=== PATIENT | male | born 2000 | race African-American/Black ===

== ENCOUNTER 2023-04-05 20:20 | Observation (INO) | payer OTHER ==
[2023-04-05 20:45] LABS: BASOPHILS % (AUTO) 0.4 %; EOSINOPHILS # (AUTO) 0.1 10^3/uL (0.0-0.7); EOSINOPHILS % (AUTO) 1.1 %; HGB - HEMOGLOBIN 15.9 g/dL (14.0-18.0); LYMPHOCYTES # (AUTO) 2.2 10^3/uL (1.5-3.5); LYMPHOCYTES % (AUTO) 21.7 %; MEAN CORPUSCULAR HEMOGLOBIN 27.8 pg (27.0-31.0); MEAN CORPUSCULAR HGB CONC 31.2 g/dL (32.0-36.0); MEAN CORPUSCULAR VOLUME 89.2 fL (80.0-94.0); MEAN PLATELET VOLUME 9.6 fL (7.4-11.4); MONOCYTES # (AUTO) 0.9 10^3/uL (0.0-1.0); MONOCYTES % (AUTO) 9.2 %; NEUTROPHILS # (AUTO) 6.8 10^3/uL (1.5-6.6); NEUTROPHILS % (AUTO) 67.4 %; PLT - PLATELET COUNT 236 10^3/uL (130-450); RED BLOOD COUNT 5.72 10^6/uL (4.70-6.10); RED CELL DISTRIBUTION WIDTH 13.3 % (12.0-15.0); WHITE BLOOD COUNT 10.1 x10^3/uL (4.8-10.8)
[2023-04-05 20:57] LABS: ALBUMIN 4.5 g/dL (3.2-5.5); ALBUMIN/GLOBULIN RATIO 1.3 (1.0-2.2); BILIRUBIN,TOTAL 1.6 mg/dL (0.2-1.0); CALCIUM 8.9 mg/dL (8.5-10.3); CREATININE 2.2 mg/dL (0.6-1.2)
[2023-04-05] MEDS ORDERED: SODIUM CHLORIDE 0.9% 1,000 ML IV STA ×2 (21:02→23:12)
--- NOTE | 2023-04-05 21:07 | ED Physician Documentation ---
PD HPI ABD PAIN - Stated complaint Stated Complaint: ABD PX - Chief complaint Chief Complaint: Abd Pain - History obtained from History obtained from: Patient - Additional information Additional information: This is a 22-year-old male with no significant past medical history and who is in the [place] presents today with right flank pain as well as abdominal pain and cramping. He first noticed the abdominal pain and cramping yesterday morning, he had episode of diarrhea and some nausea but no vomiting. He then noticed some right flank pain today. He does not have dysuria but feels some sort of di scomfort in his abdomen when he is voiding. He has not noticed decreased urination or hematuria however. He does note that his 4 days ago he felt like he is sustained a left-sided back injury while playing football and he went into the clinic and received a Toradol shot and then took ibuprofen several times with improvement in the left flank pain but then subsequently had his abdominal discomfort and symptoms. No history of kidney disease to his knowledge, no family history of kidney disease. No history of kidney stones. Review of Systems Constitutional: reports: Reviewed and negative Eyes: reports: Reviewed and negative Ears: reports: Reviewed and negative Nose: reports: Reviewed and negative Throat: reports: Reviewed and negative Cardiac: reports: Reviewed and negative Respiratory: reports: Reviewed and negative GI: reports: Abdominal Pain, Nausea, Diarrhea. denies: Abdominal Swelling, Vomiting, Constipation, Hematemesis, Bloody / black stool : reports: Dysuria. denies: Frequency, Hesitancy, Unable to Void, Incontinent, Hematuria, Discharge Skin: reports: Reviewed and negative Musculoskeletal: reports: Back pain. denies: Neck pain, Extremity pain, Joint pain, Extremity swelling Neurologic: reports: Reviewed and negative Psychiatric: reports: Reviewed and negative Endocrine: reports: Reviewed and negative PD PAST MEDICAL HISTORY - Present Medications Home Medications: Ambulatory Orders Medication Instructions Recorded Confirmed No Known Home Medications 04/05/23 04/05/23 - Allergies Allergies/Adverse Reactions: Allergies Allergy/AdvReac Type Severity Reaction Status Date / Time No Known Drug Allergies Allergy Verified 04/05/23 20:34 PD ED PE NORMAL - Vitals Vital signs reviewed: Yes - General General: Alert and oriented X 3, No acute distress, Well developed/nourished - HEENT HEENT: Atraumatic, Pharynx benign - Neck Neck: Supple, no meningeal sign, No JVD - Cardiac Cardiac: RRR, No murmur - Respiratory Respiratory: No respiratory distress, Clear bilaterally - Abdomen Abdomen: Normal bowel sounds, Soft, Non distended, Other (mild generalized ttp w/o guarding) - Back Back: Other (right cvat) - Derm Derm: Normal color, Warm and dry, No rash - Extremities Extremities: No deformity, No tenderness to palpate, Normal ROM s pain, No edema - Neuro Neuro: Alert and oriented X 3 Eye Opening: Spontaneous Motor: Obeys Commands Verbal: Oriented GCS Score: 15 - Psych Psych: Normal mood, Normal affect Results - Vitals Vitals: Vital Signs - 24 hr 04/05/23 04/05/23 20:32 21:20 Temperature 36.7 C Heart Rate 72 59 L Respiratory 18 16 Rate Blood Pressure 135/74 H 140/84 H O2 Saturation 99 100 Oxygen O2 Source Room air - Labs Labs: Laboratory Tests 04/05/23 04/05/23 04/05/23 20:39 20:39 21:00 WBC 10.1 RBC 5.72 Hgb 15.9 Hct 51.0 MCV 89.2 MCH 27.8 MCHC 31.2 L RDW 13.3 Plt Count 236 MPV 9.6 Neut # (Auto) 6.8 H Lymph # (Auto) 2.2 Summers # (Auto) 0.9 Eos # (Auto) 0.1 Baso # (Auto) 0.0 Absolute Nucleated RBC 0.00 Nucleated RBC % 0.0 Sodium 138 Potassium 4.0 Chloride 103 Carbon Dioxide 28 Anion Gap 7.0 BUN 12 Creatinine 2.2 H Estimated GFR (MDRD) 37 L Glucose 105 H Calcium 8.9 Total Bilirubin 1.6 H AST 18 ALT 13 Alkaline Phosphatase 45 Total Protein 8.0 Albumin 4.5 Globulin 3.5 Albumin/Globulin Ratio 1.3 Lipase 26 Urine Color YELLOW Urine Clarity CLEAR Urine pH 6.5 Ur Specific Palmer <=1.005 Urine Protein NEGATIVE Urine Glucose (UA) NEGATIVE Urine Ketones NEGATIVE Urine Occult Blood NEGATIVE Urine Nitrite NEGATIVE Urine Bilirubin NEGATIVE Urine Urobilinogen 0.2 (NORMAL) Ur Leukocyte Esterase NEGATIVE Ur Microscopic Review NOT INDICATED Urine Culture Comments NOT INDICATED PD Medical Decision Making - ED course Complexity details: reviewed results, re-evaluated patient, considered differential, d/w patient ED course: 22-year-old male with no significant past medical history presented with some mild generalized abdominal tenderness as well as right flank pain as described in HPI. Patient did have recent NSAID use for left back strain as well as an episode of diarrhea and poor p.o. intake over the weekend. Today he is well- appearing on acute physical exam though does have some mild CVAT on the right flank and mild generalized abdominal tenderness. Vital signs are stable. We obtained labs to evaluate for possible source of infection, kidney disease, UTI, kidney stone, pyelonephritis. Labs showed a stable CBC but he does have a creatinine of 2.2 and a GFR of 37. I have no labs to compare to but presumably this is new for patient as he has no known history. His urinalysis does not show any sign of infection. I did obtain a CT noncontrast study to evaluate for possible kidney stones or signs of obstruction resulting in his LOUIE versus potentially from a gastroenteritis causing some dehydration. The patient received a liter of normal saline as well as 4 mg of IV Zofran and 2 mg of IV morphine with some improvement in his symptoms. At this time, CT results are pending but I do think the patient can likely be discharged home if CT shows No emergent findings. The patient will need to follow-up with PCP for repeat renal function testing in the next week or so. Patient was signed out to pending the results of the CT scan. Departure - Departure Forms: PCP List
[2023-04-05 21:31] LABS: BILIRUBIN,URINE NEGATIVE (NEGATIVE); GLUCOSE, URINE (UA) NEGATIVE (NEGATIVE); KETONES,URINE (UA) NEGATIVE (NEGATIVE); LEUKOCYTE ESTERASE, URINE NEGATIVE (NEGATIVE); NITRITE,URINE NEGATIVE (NEGATIVE); OCCULT BLOOD,URINE NEGATIVE (NEGATIVE); PH,URINE 6.5 PH (5.0-7.5); PROTEIN,URINE NEGATIVE (NEGATIVE); UROBILINOGEN,URINE 0.2 (NORMAL) E.U./dL (NORMAL)
[2023-04-05 21:38] LABS: CLARITY,URINE CLEAR (CLEAR)
[2023-04-05] MEDS ORDERED: ONDANSETRON 4 MG/2 ML VIAL IVP STA (21:58)
[2023-04-05] MEDS ORDERED: MORPHINE 2 MG/ML CARPUJECT IVP STA (21:58)
--- NOTE | 2023-04-05 22:55 | CT Report ---
PROCEDURE: ABDOMEN/PELVIS WO INDICATIONS: right flank pain, LOUIE, eval obstructive/infectious TECHNIQUE: A CT scan of the abdomen and pelvis was performed without the use of intravenous contrast. Images we re recorded and evaluated at appropriate window settings. Reformats: coronal and sagittal. For radiat ion dose reduction, the following was used: automated exposure control, adjustment of mA and/or kV ac cording to patient size. COMPARISON: None. FINDINGS: Image quality: Excellent. Lung bases: There is mild dependant atelectasis. Heart: Heart is normal in size. URINARY: Right Kidney and Ureter: No stones or hydronephrosis. No hydroureter. Left Kidney and Ureter: No stones or hydronephrosis. No hydroureter. Bladder: Normal wall thickness. No stones. ABDOMEN: Liver: Noncontrast evaluation of the liver demonstrates no discrete mass. Gallbladder: Within normal limits without calcified gallstones. Biliary ducts: No biliary ductal dilatation. Pancreas: Unremarkable. Spleen: Normal in size. Adrenal Glands: No adrenal nodules. Stomach and Bowel: Stomach, small bowel loops, and colon are normal in caliber and wall thickness. N o evidence of appendicitis. Peritoneum: No abnormal intraperitoneal fluid. No free air. Ventral Wall: No hernia. Abdominal Nodes: No retroperitoneal or mesenteric adenopathy by size criteria. Vessels: Aorta and inferior vena cava are normal in size. PELVIS: Pelvic Organs: Unremarkable. Pelvic Nodes: No enlarged lymph nodes. Miscellaneous: No inguinal hernias identified. Bones: Visualized osseous structures demonstrate no suspicious focal lesions. IMPRESSION: 1. No hydronephrosis or obstructing renal stone. 2. No perinephric stranding but evaluation for pyelonephritis is limited in the absence of intravenou s contrast. Reviewed by: Marino Masterson MD on 04/05/2023 10:54 PM PDT Approved by: Marino Masterson MD on 04/05/2023 10:54 PM PDT Station ID: [id number]
[2023-04-05] MEDS ORDERED: ACETAMINOPHEN 500 MG TABLET PO STA (23:51)
[2023-04-06 00:41] LABS: CALCIUM 8.7 mg/dL (8.5-10.3); CREATININE 2.1 mg/dL (0.6-1.3)
--- NOTE | 2023-04-06 01:40 | ED Physician Documentation ---
ED Addendum - Addendum Addendum: 04/06/23 Patient signed out to me at shift change by LEENA Vazquez To follow-up on CT scan results. Patient presenting with flank pain and abdominal pain with recent nausea, diarrhea and an episode of emesis. Found to have an elevated creatinine with unclear baseline. A CT scan without acute findings, no hydronephrosis or obstructive process. Urinalysis is negative for infection. On reevaluation patient states that he does not feel much better. Discussed plan for additional 1 L of IV fluids and recheck of his BMP. In the meanwhile we also reviewed his records from the [facility] and I do not see any lab results of renal function from the past several years.On repeat BMP his creatinine has not changed significantly, 2.2-2.1. GFR up to 47 from 37. Patient reports still having generalized discomfort in the abdomen and back. He is ambulatory. His CK level is 101. Question whether patient has underlying kidney disease. Ultrasound is not available at this hour to evaluate for renal artery stenosis. Discussed options including consultation with hospitalist for observation versus follow-up at the [facility]. As patient reports he is not feeling much better he is agreeable to staying overnight in the hospital. Discussed with admitting hospitalist who will see the patient for further management. Departure - Departure Disposition: ED Place in Observation Clinical Impression: LOUIE (acute kidney injury), Flank pain Condition: Good
[2023-04-06] MEDS ORDERED: oxyCODONE 5 MG TABLET PO PRN (01:47)
[2023-04-06] MEDS ORDERED: SODIUM CHLORIDE FLUSH 0.9% 10 ML SYRINGE IVP PRN (01:47)
[2023-04-06] MEDS ORDERED: ONDANSETRON ODT 4 MG TABLET TL PRN (01:47)
[2023-04-06] MEDS ORDERED: PROCHLORPERAZINE 10 MG/2 ML VIAL IVP PRN (01:47)
[2023-04-06] MEDS ORDERED: ACETAMINOPHEN 325 MG TABLET PO PRN (01:47)
--- NOTE | 2023-04-06 02:13 | HISTORY & PHYSICAL EXAMINATION ---
History and Physical - History and Physical chief complaint abdominal pain nausea and vomiting This is a 22 year old gentleman no known significant past medical history who presented to the emergency room with chief complaint of flank pain which started on Thursday patient seemed to have had an extreme workup he had his back he went to outside facility where he was given Toradol shot and discharge. The patient did not improve he could also not hold anything any in stomach had nausea and vomiting so persistent of symptoms prompted patient to seek medical attention.in the emergency room patient was evaluated was given IV fluids IV morphine multiple workup including a CT scan basic blood work showed creatinine of 2.2 it wasn't clear if this is new or if it was old patient with no medical problems. Patient is very active patient was given IV fluids creatinine improved to 2.1. we were called to evaluate the patient for admission to [facility] and diagnostic workup for possible acute kidney injury I examined the patient through video assisted technology patient is comfortable not in any acute distress denies any fevers denies any chills no headaches no blurred vision feels very sore over all his body. Patient was given antinausea medications in the emergency room he felt comfortable. Past medical history no nursing the past medical history allergies no known drug allergies social no smoking no alcohol no illicit drug use surgical history nine family history hypertension on mom and dad review of systems to the left and systems reviewed negative other than those mentioned above. Physical exams general appearance patient appears comfortable speaking four sentences not in any acute distress. HEENT normocephalic atraumatic lungs are clear to auscultation snow wishes no crackles cardiovascular system regular rate and rhythm no murmurs or Mobile appreciated. abdomen diffuse soreness bowel sounds positive no masses palpated extremities no edema no ulcers no cyanosis no clubbing neurological patient is awake and alert oriented times four skein intact laboratory data creatinine 2.1, 2.2 Assessment acute kidney injury intractable nausea and vomiting traumatic low back pain Plan admitted into observation status and the hospital is team MedSurg IV fluids would normal saline at 150 mph I requested to check CPK levels rule out rhabdomyolysis in a young patient competent 10 mg IV Q6 hours for nausea vomiting Zofran 4 mg PO here six hours PRN for nausea Tylenol as needed for pain hydrocodone for severe pain DVT prophylaxis low-risk ambulation plan discussed the patient answer all questions appropriately the best of my ability also discussed with nurse at bedside who facilitated the examination via video zoom. The [facility] is team on site will assume care of pt.
[2023-04-06] MEDS: SODIUM CHLORIDE 0.9% 1,000 ML IV SCH ×2 (02:29→09:22)
[2023-04-06] MEDS: HYDROcod/ACETAM 5/325 MG TABLET PO PRN ×4 (02:33→20:52)
[2023-04-06 06:15] LABS: CALCIUM 8.1 mg/dL (8.5-10.3); CREATININE 2.1 mg/dL (0.6-1.3); POTASSIUM 3.8 mmol/L (3.5-4.5)
[2023-04-06] MEDS: SODIUM CHLORIDE FLUSH 0.9% 10 ML SYRINGE IVP SCH ×2 (08:19→16:03)
--- NOTE | 2023-04-06 12:11 | Discharge Plan ---
Discharge Plan Problem Reviewed?: Yes Disposition: Home, Self Care Condition: Good Prescriptions: HYDROcod/ACETAM 5/325 [Clive 5/325] 1 tab PO Q4HR PRN #10 tab PRN Reason: Pain 5 to 7 Diet: Regular Activity Restrictions: Activity as Tolerated Shower Restrictions: No Driving Restrictions: No Weight Bearing: Full Weight Health Concerns: You came to the emergency room because of mid abdominal cramping since April 04 with 1 episode of vomiting, chronic nausea, and some diarrhea. You had no fever. You have no history of previous abdominal surgeries or bowel disease. We evaluated you in the context of a recent football game you had where you got hit pretty hard over your back. CAT scan of your abdomen and pelvis showed that your kidneys were good. Anatomically they were fine without bruising, and the ureters were draining urine. Liver and gallbladder and pancreas and spleen were normal. Stomach and bowel was normal. No appendicitis. No hernias. Urinalysis was completely, completely normal. There were [place] no abnormal urinary constituents in it. What was concerning was kidney dysfunction. You appear to have a baseline creatinine of 2.2. Normal is 0.6-1.3. Your filtration is anywhere between 37 to 47 mL/min. Normal is at least 89 mL/min. I think we found that you have some kidney dysfunction in the context of a mild gastroenteritis. I do not think that your abdominal discomfort and gastroenteritis has anything to do with the kidney dysfunction. There are separate problems. We did an initial ultrasound to make sure the artery circulation to your kidneys was normal. Plan of Treatment: You received IV fluids for hydration. Your kidneys remain unchanged. You been able to tolerate a diet. You are asking for pain medicines to go home with so we will give you 10 tablets of Clive 1 every 6 hours as needed. You need to [facility] If you need further pain medicines you will get it from them. They will also need to continue the work-up for your kidney dysfunction and refer you to a nephrolog y specialist.We did do an ultrasound study to see if the arteries to your kidneys are working. That was done right before you left and I do not have a report. Your [facility] doctor will have to look at that report when you go to clinic. From my work restriction, there is no restrictions that I need to place on you. Care Goals: To find out why your kidney function is reduced. No Smoking: If you smoke, Please STOP! Call for help.
[2023-04-06 16:58] LABS: MUDS CUTOFF CONCENTRATIONS CUTOFF CONC BELOW:
[2023-04-06 17:26] LABS: AMPHETAMINE SCREEN,URINE NEGATIVE (NEGATIVE); BARBITURATE SCREEN,UR NEGATIVE (NEGATIVE); BENZODIAZEPINES SCREEN, URINE NEGATIVE (NEGATIVE); COCAINE SCREEN URINE NEGATIVE (NEGATIVE); METHADONE SCREEN, URINE NEGATIVE (NEGATIVE); METHAMPHETAMINES SCREEN, URINE NEGATIVE (NEGATIVE); OPIATE SCREEN, URINE POSITIVE (NEGATIVE); OXYCODONE SCREEN, URINE NEGATIVE (NEGATIVE); PROPOXYPHENE SCREEN, URINE NEGATIVE (NEGATIVE); THC CANNABINOID SCREEN, URINE NEGATIVE (NEGATIVE); TRICYCLIC ANTIDEPRESSANT,URINE NEGATIVE (NEGATIVE)
--- NOTE | 2023-04-06 19:05 | DISCHARGE SUMMARY ---
"Discharge Summary Admit Date: 04/06/23 Discharge Date: 04/06/23 Discharging Provider: Mya Rivera MD Primary Care Provider: Active Duty , Seen at [facility] Code Status: Attempt Resuscitation Condition at Discharge: Good Discharge Disposition: 01 Home, Self Care - DIAGNOSES Discharge Diagnoses with Status of Each Condition: 1. Diffuse abdominal pain 2. 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 Associated with nausea, 1 episode of emesis, and some diarrhea. He has no previous history of abdominal problems or surgeries. No recent illnesses. No one else is sick. He did play football game 4 days prior to admission. - CONSULTS | PROCEDURES Procedures: Abdomen pelvis CT has negative urinary findings, bladder findings, abdomen solid organ findings, stomach and bowel findings, ventral wall, vessels. 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 Was in a football game a few days before coming in and had a tackle where his flank hurt. But nothing severe. He then developed abdominal pain associated with emesis. The pain starts in his testicles and radiates up into his lower pelvic and then into generalized abdominal area. It waxes and wanes and is very severe. Is been associated with emesis. It does affect his appetite and he does not have an appetite with it. He was evaluated in the ER with a CT and there is no pathol ogy found. There is no stones in his kidneys. Liver was normal. Stomach was normal and bowel was normal. Bladder appeared normal. Urinalysis was completely, completely normal. He had no casts. No white cells, no red cells. A careful scrotal exam was done and there is no epididymitis. I discussed the case over the phone with urology. This was not a formal consult. We thought about testicular torsion. The patient has no pain in between his episodes. And testicles are descended and not painful. He received over 2 L of IV fluid and creatinine was 2.2 on admission and remained 2.1 by discharge. He is identified as having kidney injury. Whether it is chronic or acute is on known. He states that as far as he knows previous blood work in the past has been negative. He did not have rhabdomyolysis and CK was normal. We evaluated him for possible renal artery stenosis. He does not have high blood pressure. Ultrasound was done right before discharge and results are pending. However he could be discharged. No work restrictions. He is asking for [place] to go home on and I given him 10 tablets. 1 p.o. every 6 hours as needed. On exam exam discharge is 36.7. Heart rate 61. Blood pressure 135/64. Respirations 16. 98% on room air. He is a well-nourished well-developed young black male who looks stated age. Significant other at the bedside. Lungs are clear. Regular rate and rhythm. No S4. No murmur. Abdomen is soft, nontender, normal bowel sounds no hepatosplenomegaly. Extremities are warm, no edema. He is alert and oriented to person place and time and situation. No focal deficits no ataxia. I am asking him to follow-up with his [employer] base doctors. I explained to him that he appears to have chronic kidney injury and that really needs to be looked at considering his young age. - ALLERGIES Allergies/Adverse Reactions: Allergies Allergy/AdvReac Type Severity Reaction Status Date / Time No Known Drug Allergies Allergy Verified 04/05/23 20:34 - MEDICATIONS Home Medications: Ambulatory Orders Medication Instructions Recorded Confirmed HYDROcod/ACETAM 5/325 [[place] 5/325] 1 tab PO Q4HR PRN #10 tab 04/06/23 - LABS Result Diagrams: 04/05/23 20:39 04/06/23 05:57"
[2023-04-06 21:24] VITALS: BP 146/92; O2SAT 100
--- NOTE | 2023-04-07 01:01 | Ultrasound Report ---
PROCEDURE: Arterial Visceral Complete INDICATIONS: creat 2.2 in young male, no dehydration TECHNIQUE: Real time scanning was performed of both kidneys, followed by Color and pulsed Doppler in terrogation of the renal vessels. COMPARISON: CT abdomen pelvis 04/05/2023. FINDINGS: Aortic peak systolic velocity: 162 cm/s. Right side: Dewey-scale imaging: Kidney is 11.8 cm long; renal cortical thickness is 1.7 cm. No hydronephrosis. No discrete shadowing renal stones. Renal cortex is slightly increased in echogenicity. No suspici ous solid renal masses. Proximal renal artery peak systolic velocity: 114 cm/s. Mid renal artery peak systolic velocity: 130 cm/s. Distal renal artery peak systolic velocity: 118 cm/s. Hilar renal artery velocity: 130 cm/s Renal vein: Patent, without thrombus. Peak renal/aortic ratio (RAR): 0.8. Left side: Dewey-scale imaging: Kidney is 11.0 cm long; renal cortical thickness is 1.3 cm. No hydronephrosis. No discrete shadowing renal stones. Renal cortex is slightly increased in echogenicity. No suspici ous solid renal masses. Proximal renal artery peak systolic velocity: 89 cm/s. Mid-renal artery peak systolic velocity: 109 cm/s. Distal renal artery peak systolic velocity: 79 cm/s. Hilar renal artery velocity: 96 m/s Renal vein: Patent, without thrombus. Peak renal/aortic ratio (RAR): 0.7. IMPRESSION: 1. No definite evidence of renal artery stenosis. 2. Increase renal cortical echogenicity compatible with medical renal disease. 3. No evidence of hydronephrosis. Reviewed by: Marino Hill MD on 04/07/2023 1:00 AM PDT Approved by: Marino Hill MD on 04/07/2023 1:00 AM PDT Station ID: [id number]
== END 2023-04-06 20:50 | disposition home or self-care (01) ==
LOC: ED 20:20 → INTOOBSV 04-06 01:47 → MS2 04-06 01:47
PROVIDERS: ADMIT Internal Medicine; ATTEND Internal Medicine
DX: N17.9 Acute kidney failure, unspecified (principal); R10.84 Generalized abdominal pain; R11.2 Nausea with vomiting, unspecified
CPT/HCPCS: 36415; 74176; 80048; 80053; 80306; 81003; 82550; 83690; 85025; 93975; 96361; 96374; 96375; 99284; 99285; A9270; G0378; 81001; 87086